=== PATIENT | male | born 1945 | race Caucasian/White ===

== ENCOUNTER 2021-04-20 12:35 | Emergency (ER) | payer MEDICARE, OTHER, SELFPAY ==
[2021-04-20 13:06] VITALS: BP 106/72; PULSE 87; RESP 16; TEMP 36.9; O2SAT 97; BMI 27.3
--- NOTE | 2021-04-20 13:09 | XR_ITS ---
PROCEDURE: XR CHEST 2V CLINICAL HISTORY: weakness, cough, poss covid COMPARISON: CR CXR2V XR chest 2V from 03/23/2018 FINDINGS: The cardiomediastinal silhouette and pulmonary vascularity are within normal limits. COPD changes. Patchy density is present in the right lower lobe medially and in the right CP angle with a faint area of density noted in the left upper lobe overlying the 2nd rib suggesting bilateral ground-glass infiltrates which may be seen with Covid19 pneumonia. Follow-up suggested to confirm resolution. No acute bony abnormalities. IMPRESSION: COPD with faint bilateral infiltrates. Possibly related to Covid19 pneumonia. Suggest follow-up to confirm resolution Dictated by: Primo Brown MD 04/20/2021 14:40 Primo Brown MD in [place] 04/20/2021 14:40
[2021-04-20 14:07] VITALS: BP 102/64; PULSE 92; RESP 18; TEMP 36.9; O2SAT 97; BMI 23.0
--- NOTE | 2021-04-20 15:00 | HMH.EDUTC ---
[facility] [place] Clinical Impression: Lung infiltrate Disposition: Home, Self-Care Condition on Discharge: Good Instructions: DI for Cough -- Adult, DI for COVID-19 (Suspected or Confirmed ), Preventing the Spread of Coronavirus Discharge Instructions Additional Instructions: ? Start antibiotic today. Be sure to complete entire prescription even if feeling better ? Monitor temp. Tylenol every 4 hours as needed and / or ibuprofen every 6 hours as needed ( As long as your primary care physician has told you that it ok to take both. For fever/aches/pains ER if no less than 101 despite Tylenol or Motrin ? Humidifier/vaporizer or hot steamy shower ? Inhaler every 4-6 hours as needed like we discussed. If unsure how to use it, ask pharmacist to demonstrate how. Should help open airways and improve cough, wheezing, and shortness of breath ? Mucinex during the day for your cough and chest congestion. Be sure to drink lots of water and Gatoraid to stay hydrated Start steroid today. Helps with inflammation therefore, cough and wheezing. Follow directions on the package. Reviewed side effects. Patient reports taking them before. Follow up IMMEDIATELY for new or worsening of symptoms OR no noticeable improvement over the next 48-72 hours. 911 immediately for any life threatening symptoms such as chest pain or difficulty breathing Straight to ER if any worsening of shortness of breat Prescriptions: guaiFENesin [Mucinex 600mg tablet] 1 - 2 tab PO Q12HP PRN #20 tab PRN Reason: Congestion Transmission Status: Received by [facility] #[id number] dexAMETHasone [Decadron] 4 mg PO DAILY 7 Days #7 tab Transmission Status: Received by [facility] #[id number] Doxycycline Monohydrate [Doxycycline [place] 100mg Tab] 100 mg PO Q12 7 Days #14 tab Transmission Status: Received by [facility] #[id number] Referrals: Ron Koch [Primary Care Provider] - As needed Time of Disposition: 15:20 Medical Decision Making - Jamari Inquiry Pt receiving controlled substance: No Jamari was queried for this patient: No Vital Signs: 04/20/21 13:06 04/20/21 14:07 04/20/21 15:23 Temperature 98.5 F 98.5 F 98.5 F Temperature Source Oral Oral Pulse Rate 92 H Pulse Rate [Right] 87 92 H Respiratory Rate 16 18 18 Blood Pressure 102/64 L Blood Pressure [Right Arm] 106/72 L 102/64 L Blood Pressure Mean [Right Arm] 83 76 Blood Pressure Source [Right Arm] Automatic Cuff Automatic Cuff Blood Pressure Position [Right Arm] Sitting Sitting 02 Sat by Pulse Oximetry 97 97 Oxygen Delivery Method Room Air Room Air - Lab Data Lab results reviewed: Yes: I reviewed the patient's lab results. - Radiology Data #1 Image(s): Chest Image Reviewed: Yes I have reviewed radiologist's interpretation COPD with faint bilateral infiltrates. Possibly related to Covid19 pneumonia. Suggest follow-up to confirm resolution [facility] [place] HPI - General Stated complaint: covid symptoms,dehydrated Time Seen by Provider: 04/20/21 15:00 Mode of Arrival: Ambulatory Source of Information: Patient Limitations: No Limitations Description of Symptoms (Recalled from Triage Doc. by RN): chills, fever, no taste or smell, nausea, body aches. Daughter was covid positive. HEENT Symptoms (Recalled from RN notes): Yes Resp Symptoms (Recalled from RN notes): Yes Skin Symptoms (Recalled from RN notes): No MS Symptoms (Recalled from RN notes): No Functional Status (Recalled from RN notes): wnl - History of Present Illness Provider Complaint: Patient states that he has been having chills, body aches, no taste or smell and has a bad taste in his mouth when he coughs up mucous States that his daughter tested positive for COVID last week and he started having symptoms around States that he has COPD and dose breathing treatments at home and was worried it would turn into pneumonia - Related Data Home Medications Medication Instructions Recorded Confirmed Aspirin
[2021-04-20 15:23] VITALS: BP 102/64; PULSE 92; RESP 18; TEMP 36.9; O2SAT 97
== END 2021-04-20 15:27 | disposition home or self-care (01) ==
PROVIDERS: Emergency Provider Nurse Practitioner; PCP Family Medicine
DX: U07.1 COVID-19 (principal); J12.82 Pneumonia due to coronavirus disease 2019; J44.9 Chronic obstructive pulmonary disease, unspecified; F17.210 Nicotine dependence, cigarettes, uncomplicated; Z88.0 Allergy status to penicillin
CPT/HCPCS: G0463; 71046; 99202; C9803; U0003; U0005